=== PATIENT | male | born 1945 ===

== ENCOUNTER 2018-07-31 09:48 | Day surgery (SDC) | payer MEDICARE ==
[2018-07-31] MEDS ORDERED: VERSED IV NR (10:47)
[2018-07-31] MEDS ORDERED: ANCEF/STERILE WATER 2 GM/20 ML IV NR (11:00)
[2018-07-31] MEDS ORDERED: LACTATED RINGERS 1,000 ML IV SCH (11:00)
[2018-07-31] MEDS ORDERED: ZOFRAN ONE (12:48)
[2018-07-31] MEDS ORDERED: DIPRIVAN 10 MG/ML IV ONE (12:48)
[2018-07-31] MEDS ORDERED: SUBLIMAZE ONE (12:48)
[2018-07-31] MEDS ORDERED: XYLOCAINE CARDIAC IV ONE (12:48)
[2018-07-31] MEDS ORDERED: XYLOCAINE MPF 2% ONE (13:00)
--- NOTE | 2018-07-31 13:46 | Post Operative Note ---
Date of procedure: 07/31/18 Pre-op diagnosis: r renal stone Post-op diagnosis: same Findings: same Procedure: r eswl Anesthesia: ANIBAL Surgeon: DAV CENTENO Estimated blood loss: none Pathology: none Condition: stable Disposition: PACU
--- NOTE | 2018-07-31 13:47 | Discharge Summary ---
Short Stay Discharge Plan Activity: other (no straining ) Weight Bearing Status: Full Weight Bearing Diet: low salt Special Instructions: other (inc fluids ) Follow up with: LUPE THORNE MD [Primary Care Provider] - 7 Days DAV CENTENO MD [Staff Physician] - 7 Days
--- NOTE | 2018-07-31 13:54 | Post Operative Note ---
Date of procedure: 07/31/18 Pre-op diagnosis: R renal stone Post-op diagnosis: same Findings: as above Procedure: r eswl Anesthesia: GETA Estimated blood loss: none Pathology: none
[2018-07-31 14:17] VITALS: BP 141/79
--- NOTE | 2018-07-31 16:34 | Operative Report ---
PREOPERATIVE DIAGNOSIS: Right ureteropelvic junction stone post-stent. POSTOPERATIVE DIAGNOSES: Right ureteropelvic junction stone post-stent. PROCEDURE: Right ESWL. SURGEON: Reji Blanca MD ANESTHESIA: General. FINDINGS: This is a gentleman, who has a stent placed for severe pain and possible infection. The stone is slightly opaque along seen right at the loop of the double J. He now presents for treatment. DESCRIPTION OF PROCEDURE: The patient was brought to the operating room and placed on the operating table. Following induction of anesthesia it was difficult to see the stone. At first, we thought it was along the upper ureter and then we saw the shadow along the double-J stent. We got the KUB from Dr. Lopez. The patient tolerated the procedure well. Shocks were begun at 1 kV, increased to maximum of 7 kV. Total of 2500 shocks were given. The patient tolerated the procedure well and brought to recovery in stable condition. JOB# [id number] VIOLETTE/GLENROY
== END 2018-07-31 09:49 | disposition home or self-care (01) ==
LOC: OR 09:48
PROVIDERS: ATTEND Urology
DX: N20.1 Calculus of ureter (principal); E78.00 Pure hypercholesterolemia, unspecified; K21.9 Gastro-esophageal reflux disease without esophagitis; I12.9 Hypertensive chronic kidney disease with stage 1 through stage 4 chronic kidney disease, or unspecified chronic kidney disease; N18.9 Chronic kidney disease, unspecified; Z87.442 Personal history of urinary calculi; Z79.82 Long term (current) use of aspirin; Z79.899 Other long term (current) drug therapy; Z87.891 Personal history of nicotine dependence; Z87.898 Personal history of other specified conditions
CPT/HCPCS: 50590; 82962; J0690; J2250; J2405; J2704; J3010; J7120; J2001